=== PATIENT | female | born 1955 | race Caucasian/White ===

== ENCOUNTER 2016-04-11 12:03 | Emergency (ER) | payer OTHER ==
[2016-04-11 12:54] LABS: BASOPHIL 0.4 % (0-2); EOSINOPHIL 1.2 % (0-5); HCT 43.9 % (37.0-47.0); HGB 14.6 g/dl (12.5-16.0); LYMPHOCYTE 16.2 % (15-48); MCH 29.8 pg (25.0-31.0); MCHC 33.3 g/dL (32.0-36.0); MCV 89.6 fL (78.0-100.0); MONOCYTE 4.4 % (0-12); MPV 9.4 fL (6.0-9.5); NEUTROPHIL 77.8 % (41-80); PLT 184 K/uL (150-400); RDW 13.1 % (11.5-14.0); WBC 10.2 K/uL (4.0-10.5)
[2016-04-11 13:19] LABS: CREATININE 0.9 mg/dL (0.5-1.0); POTASSIUM 3.8 mmol/L (3.5-5.1)
== END 2016-04-11 13:49 | disposition home or self-care (01) ==
LOC: FER 12:03
PROVIDERS: Emergency Medicine
DX: B09 Unspecified viral infection characterized by skin and mucous membrane lesions (principal)
CPT/HCPCS: 36415; 80048; 85025; J2930